=== PATIENT | female | born 1990 | race Caucasian/White ===

== ENCOUNTER → 2020-05-08 | Outpatient (CLI) | payer OTHER ==
[~2020-05-08] MED LIST: XANAX 0.5 MG0.5 M1 PO
== END ==
LOC: LAB 05-07 10:52
PROVIDERS: ATTEND Internal Medicine Gastroenterology
DX: Z01.812 Encounter for preprocedural laboratory examination (principal); Z20.822 Contact with and (suspected) exposure to COVID-19

== ENCOUNTER → 2020-05-10 | Outpatient (CLI) | payer OTHER ==
[~2020-05-10] VITALS: Ht 165.1 cm; Wt 163.3 kg
--- NOTE | 2020-05-13 15:07 | PATH ---
[facility] [address] [address] PATHOLOGY RPT PROCEDURE Name: DHAVALROBERT Room #: REG TIM [place]#: [id number] Admission: 05/10/20 Date of : 89 Discharge: Report #: [id number] Path Case #: [id number] [facility] Accession Number: [id number] . 01 Material submitted: . gastrointestinal site - RANDOM GASTRIC R/O H.PYLORI . 02 Diagnosis: Stomach "random", endoscopic biopsy: - Gastric antral and oxyntic mucosa with features of reactive gastropathy, background chronic gastritis, and focally prominent eosinophils. - Negative for intestinal metaplasia, dysplasia, and malignancy. - Negative for Helicobacter pylori. - Please see comment. (KAMILAH:david; 05/13/2020) S 05/13/2020 1357 Local . 02 Comment: The gastric biopsy shows features of reactive gastropathy, with a mild to moderate background of chronic inflammation, including focally prominent eosinophils. 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 Correlation with other allergic stigmata is suggested. (MLK:david; 05/13/2020) . 02 Electronically signed: . Júnior Rangel MD, Pathologist NPI- [id number] . 01 Gross description: . Received in formalin labeled "Robert Krishnan, random gastric BX rule out H. pylori" are multiple dye-brown soft tissue fragments measuring in aggregate 1.2 x 0.3 x 0.1 cm. The specimen is submitted entirely in A1. ([facility]; 05/12/2020) [facility] 05/12/2020 1138 Local . 02 Microscopic: . Immunohistochemical stain results (properly controlled): . Helicobacter pylori (A1) - Negative for organisms. . (MLK:david; 05/13/2020) . 02 Pathologist provided ICD-10: K31.9, K29.50 . [address] [address] PATHOLOGY RPT PROCEDURE Name: ROBERT KRISHNAN Room #: REG [facility]#: [id number] Admission: 05/10/20 Date of : 89 Discharge: Report #: [id number] Path Case #: [id number] CPT . 257692, [id number] Specimen Comment: Report sent to / Performed at: [address], [place], [place] [id number] MD Sam Delgado MD Phone: [phone] Performed at: [address] [id number] MD Karime Mccormick MD Phone: [phone]
== END | disposition home or self-care (01) ==
LOC: GI 06:35
PROVIDERS: ATTEND Internal Medicine Gastroenterology
DX: Z01.818 Encounter for other preprocedural examination (principal); E66.01 Morbid (severe) obesity due to excess calories; K31.89 Other diseases of stomach and duodenum; K29.50 Unspecified chronic gastritis without bleeding; F41.9 Anxiety disorder, unspecified; Z98.890 Other specified postprocedural states; Z79.899 Other long term (current) drug therapy; Z68.43 Body mass index [BMI] 50.0-59.9, adult
CPT/HCPCS: 62110; 62900